=== PATIENT | male | born 1975 | race Caucasian/White ===

== ENCOUNTER 2018-12-11 18:23 | Emergency (ER) | payer MEDICAID ==
[~2018-12-11] VITALS: Wt 97.9 kg
[~2018-12-11 18:23] MED LIST: HYDR-3498 PO
[2018-12-11] MEDS ORDERED: METHYLPREDNISOLONE 125 MG INJ IM STA (20:16)
[2018-12-11] MEDS ORDERED: ALBUTEROL 0.083% (NEB) 2.5 MG/3 ML AMP NEB STA (20:16)
[2018-12-11] MEDS ORDERED: IPRATROPIUM (NEB) 0.5 MG/2.5 ML AMP NEB STA (20:16)
--- NOTE | 2018-12-11 20:21 | ERD ---
ER Documentation Chief Complaint Chief Complaint productive cough x4d, fever x1d. pain when coughing. tylenol in AM HPI Patient is a 43 years old male with no known past medical history presented to the clinic for 3 days history of cough with chest pain, dark sputum production, sore throat, bilateral ear pain, coryza, body aches, fatigue, chills, sinus pressure, and headaches. Patient reports taking [id number] Tylenol without resolution. 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 ROS All systems reviewed and are negative except as per history of present illness. Medications Home Meds Active Scripts Albuterol Sulfate* (Albuterol Sulfate* Neb) 0.083%-3 Ml Neb, 2.5 MG NEB Q4 PRN for SHORTNESS OF BREATH, #30 EA Prov:YAZMIN KASPER PA-C 12/11/18 Nebulizer (Compact Compressor Nebulizer) 1 Each Each, EACH MC, #1 Prov:YAZMIN KASPER PA-C 12/11/18 Dextromethorphan Hb-Promethazine Hcl* (Promethazine DM* Syrup) 473 Ml Syrup, 5 ML PO Q6 PRN for COUGH for 7 Days, ML Prov:YAZMIN KASPER PA-C 12/11/18 Acyclovir* (Zovirax*) 800 Mg Tablet, 800 MG PO 5 TIMES DAILY for 7 Days, TAB Prov:YAZMIN KASPER PA-C 12/11/18 Hydrocodone Bit-Acetaminophen* ([place]*) 5-325 Mg Tab, 1 TAB PO Q6 PRN for PAIN, #7 TAB Prov:JAMIE MATHEW PA-C 11/27/15 Allergies Allergies: Coded Allergies: No Known Drug Allergies (Verified Allergy, Mild, 07/07/10) PMhx/Soc Medical and Surgical Hx: pt denies Medical Hx, pt denies Surgical Hx History of Surgery: No Anesthesia Reaction: No Hx Neurological Disorder: No Hx Respiratory Disorders: No Hx Cardiac Disorders: No Hx Psychiatric Problems: No Hx Miscellaneous Medical Probl: No Hx Alcohol Use: No Hx Substance Use: No Hx Tobacco Use: No Smoking Status: Never smoker FmHx Family History: No diabetes, No coronary disease, No other Physical Exam Vitals Vital Signs Date Temp Pulse Resp B/P (MAP) Pulse Ox O2 O2 Flow FiO2 Time Delivery Rate 5/29/19 10 20:35 12/11/18 93 22 94 21 20:28 12/11/18 100.0 94 20 172/73 95 18:36 (106) Physical Exam Const: Mildly lethargic. Head: Atraumatic Eyes: Normal Conjunctiva ENT: Normal External Ears, Nose. Vesicular lesion on left lower lip that are slightly tender to palpation. Neck: Full range of motion. No meningismus. Resp: Decreased sounds bilaterally with mild expiratory wheezing. Cardio: Regular rate and rhythm, no murmurs Neur: Awake and alert Psych: Normal Mood and Affect Results 24 hrs Current Medications Medications Dose Sig/Nia Start Time Status Last (Trade) Ordered Route PRN Stop Time Admin Dose Reason Admin Albuterol 5 mg ONCE STAT 12/11/18 DC 12/11/18 (Proventil NEB 20:16 20:28 0.083% (Neb)) 12/11/18 20:18 Ipratropium 1.5 mg ONCE STAT 12/11/18 DC 12/11/18 Adrian NEB 20:16 20:28 (Atrovent 12/11/18 20:18 0.02% (Neb)) 125 mg ONCE STAT 12/11/18 DC 12/11/18 Methylprednis IM 20:16 20:26 olone Sodium 12/11/18 20:18 Succinate (Solu-Medrol) 500 mg ONCE STAT 12/11/18 DC 12/11/18 Acetaminophen PO 20:23 20:34 (Tylenol 12/11/18 20:24 Tab) Procedures/MDM Patient was seen and evaluated for cold-like symptoms. Patient's influenza is negative chest x-ray revealed basilar atelectasis. Patient admits to significant improvement in his breathing status post nebulizer treatment. Patient requested at home nebulizer Rx. Departure Diagnosis: Primary Impression: Upper respiratory infection URI type: unspecified viral URI Qualified Codes: J06.9 - Acute upper respiratory infection, unspecified Additional Impression: Oral herpes simplex infection Condition: Stable Patient Instructions: Cough, Chronic, Uncertain Cause, (Adult) Referrals: [facility] Additional Instructions: Paciente aconseja volver a Departamento de urgencias inmediatamente para sntomas nuevos o que empeoran . Paciente aconseja posteriores con el PCP en 2-3 nur . Paciente verbaliza la comprehensin y est de acuerdo con el tratamiento y el curso de accin. Si el paciente no tiene ninguna de atencin primaria pueden seguir con [facility] [id number] [place] [address] o [facility] + [address] [address] YAZMIN KASPER PA-C December 11, 2018 20:21
[2018-12-11] MEDS ORDERED: ACETAMINOPHEN 500 MG TAB PO STA (20:23)
[2018-12-11] MEDS ORDERED: NEBU1KIT3 MC (21:32)
[2018-12-11] MEDS ORDERED: ALBU2.5V3 NEB (21:32)
[2018-12-11] MEDS ORDERED: ACYC800T5 PO (21:32)
[2018-12-11] MEDS ORDERED: D-ME473S2 PO (21:32)
[2018-12-11 21:43] VITALS: BP 140/87; PULSE 88; RESP 18
== END 2018-12-11 21:45 | disposition home or self-care (01) ==
LOC: FTE 18:23
DX: J06.9 Acute upper respiratory infection, unspecified (principal); B00.9 Herpesviral infection, unspecified
CPT/HCPCS: 71045; 87400; 94644; 96374; J2930; Z7502; Z7610